=== PATIENT | male | born 2000 ===

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

== ENCOUNTER 2019-10-06 20:42 | Emergency (ER) | payer OTHER ==
[~2019-10-06] VITALS: Ht 195.6 cm; Wt 135.8 kg
--- NOTE | 2019-10-06 21:02 | NUR ---
FIRST CONTACT WITH PT. 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 REPORTS CHANGE IN VISION LAST NIGHT WHICH HAS SINCE RESOLVE. NO CHANGE IN PAIN W PO NORCO OR BENADRYL. DENIES DIZZINESS/WEAKNESS/N/V/PHOTOPHOBIA/PHONOPHOBIA. SPEECH CLEAR, FACE SYMMETRICAL. NO GROSS NEURO DEFICITS. BP/SPO2 MONITOR IN PLACE.
[2019-10-06] MEDS ORDERED: KETOROLAC 30 MG/1 ML ONE (21:25)
[2019-10-06] MEDS ORDERED: DIPHENHYDRAMINE 25 MG CAPSULE ONE (21:25)
[2019-10-06] MEDS ORDERED: PROCHLORPERAZINE 5 MG/ML, 2ML ONE (21:26)
[2019-10-06] MEDS ORDERED: PROCHLORPERAZINE 5 MG/ML, 2ML IM ONE (21:30)
[2019-10-06] MEDS ORDERED: DIPHENHYDRAMINE 25 MG CAPSULE PO ONE (21:30)
[2019-10-06] MEDS ORDERED: KETOROLAC 30 MG/1 ML IM ONE (21:30)
[2019-10-06] MEDS ORDERED: ONDANSETRON ODT 4 MG ONE (21:49)
[2019-10-06 21:55] VITALS: BP 134/85
[2019-10-06] MEDS ORDERED: ONDANSETRON ODT 4 MG PO ONE (22:00)
--- NOTE | 2019-10-06 22:13 | NUR ---
DC EDUCATION PROVIDED, PT DEMONSTRATES UNDERSTANDING. PT AMBULATED STEADILY TO DC WITH RN.
== END 2019-10-06 22:15 | disposition home or self-care (01) ==
LOC: ED 22:07
DX: G43.109 Migraine with aura, not intractable, without status migrainosus (principal); Z87.891 Personal history of nicotine dependence
CPT/HCPCS: 96372; 99283; J1885; Q0162

== ENCOUNTER 2020-11-26 08:10 | Emergency (ER) | payer OTHER ==
[~2020-11-26] VITALS: Ht 193 cm; Wt 144.4 kg
[2020-11-26 08:12] VITALS: BP 131/81
[2020-11-26] MEDS ORDERED: ACETAMINOPHEN 500 MG TABLET ONE (08:42)
[2020-11-26] MEDS ORDERED: ACETAMINOPHEN 500 MG TABLET PO ONE (09:30)
== END 2020-11-26 08:59 | disposition home or self-care (01) ==
LOC: ED 08:40
DX: K08.89 Other specified disorders of teeth and supporting structures (principal); G43.909 Migraine, unspecified, not intractable, without status migrainosus; R63.0 Anorexia; Z87.891 Personal history of nicotine dependence
CPT/HCPCS: 99283